=== PATIENT | male | born 1940 | race Caucasian/White ===

== ENCOUNTER → 2017-06-24 | Outpatient (CLI) | payer MEDICARE, BC ==
[2014-05-01 17:10] VITALS: BMI 31.3
[~2017-06-24] MED LIST: ACET-2043 PO; ALFU10TA9 PO; ASPI-757 PO; ATOR40TA24 PO; HYDR-318 PO; HYDR453.8 TP; ISOS30TA54 PO; LISI-374 PO; LISI20TA29 PO; MECL12.5 PO; MULT1CAP59 PO; NAPR220C12 PO; OMEP-137 PO; OMEP40CA48 PO; OXYB5TAB86 PO; SIMV-54 PO
--- NOTE | 2017-06-24 16:55 | RADIOLOGY IMAGING REPORT ---
FACILITY: [facility] PATIENT NAME: Juan Encarnacion : 1940 MR: [id number] V: [id number] EXAM DATE: ORDERING PHYSICIAN: [facility] TECHNOLOGIST: Location: [facility] [place] Patient: Juan Encarnacion : 1940 Visit/Account:[id number] Date of Sevice: 06/24/2017 CHEST PA AND LAT INDICATION: Pneumonia COMPARISON: None available FINDINGS: Heart size within normal limits. There is no focal infiltrate or lobar consolidation. There is no pneumothorax or pleural effusion. IMPRESSION: 1. No acute cardiopulmonary process. Report Dictated By: Jesus Sifuentes at 06/24/2017 4:48 PM Report E-Signed By: Jesus Sifuentes at 06/24/2017 4:49 PM WSN:[id number]
== END ==
LOC: RAD 15:47
DX: J18.9 Pneumonia, unspecified organism (principal)
CPT/HCPCS: 71046

== ENCOUNTER 2017-09-26 11:51 | Emergency (ER) | payer MEDICARE, BC ==
[2014-05-01 17:10] VITALS: Wt 93.4 kg
--- NOTE | 2017-09-26 12:00 | ER Report ---
History and Physical Time Seen By MD: 11:59 Hx. of Stated Complaint: PT REPORTS SOB FOR "A COUPLE OF MONTHS, WORSE THE LAST WEEK OR TWO", SWOLLEN LEGS AND PAIN DOWN BOTH ARMS AND LEGS HPI/ROS CHIEF COMPLAINT: Exertional chest pain and shortness of breath. HISTORY OF PRESENT ILLNESS: Patient is 76-year-old male with past medical history for hypertension, hyperlipidemia, history of CHF, history of upper extremity DVT. Patient presents to merge department today with 2-3 months of exertional shortness of breath along with episodes of chest pain. Currently the patient has no chest pain but has noticed over the last 1-2 weeks worsening exercise tolerance. He feels quite short of breath and gets discomfort in the chest with going up just one flight of stairs. His noticed significant swelling in bilateral lower extremities. He also gets pain in both arms with exertion. Patient has no prior history per report of NH however a echocardiogram that was performed in 2016 showed some apical wall motion abnormalities. The patient also reports cough is productive of frothy sputum but denies fevers or chills. Patient is a former smoker. REVIEW OF SYSTEMS: Constitutional: No fever, no chills. Eyes: No discharge. ENT: No sore throat. Cardiovascular: Exertional chest pain Respiratory: Personal shortness of breath Gastrointestinal: No abdominal pain, no vomiting. Genitourinary: No hematuria. Musculoskeletal: No back pain. Skin: No rashes. Neurological: No headache. Allergies: Coded Allergies: No Known Drug Allergies (Unverified , 09/26/17) Home Meds Reported Medications Hydrocortisone 2.5% Oint (HYDROCORTISONE 2.5% OINT) 453.6 Gm Oint...g., 453.6 GM TP PRN, TUBE 04/05/17 Naproxen Sodium (ALEVE) 220 Mg Capsule, 220 MG PO BID Y for PAIN, CAPSULE 04/05/17 Omeprazole (OMEPRAZOLE) 40 Mg Capsule.dr, 40 MG PO QDAY, CAP 04/05/17 Alfuzosin Hcl (ALFUZOSIN HCL) 10 Mg Tab.er.24h, 10 MG PO QDAY 12/04/16 Isosorbide Mononitrate (ISOSORBIDE MONONITRATE ER) 30 Mg Tab.er.24h, 30 MG PO QDAY 12/04/16 Multivitamin (MULTIVITAMINS) 1 Each Capsule, 1 EACH PO QDAY, CAPSULE 12/04/16 Atorvastatin Calcium (LIPITOR) 40 Mg Tablet, 1 TAB PO QDAY, TAB 12/04/16 Lisinopril (LISINOPRIL) 40 Mg Tablet, 40 MG PO QDAY, TAB 12/04/16 Aspirin (ASPIRIN) 325 Mg Tablet, 325 MG PO DAILY, TAB 05/03/14 Past Medical/Surgical History Past medical history significant for hypertension, hyperlipidemia, benign prostatic hypertrophy, peripheral vascular disease, history of upper extremity DVT, history of total hip replacement. Hx Smoking: Yes (SMOKED 3 PPD FOR 35 YEARS) Smoking Status: Former Smoker Exposure to Second Hand Smoke?: No Hx Substance Use Disorder: No Hx Alcohol Use: Yes Constitutional Vital Sign - Last 24 Hours 09/26/17 09/26/17 09/26/17 09/26/17 11:55 11:55 12:00 12:06 Temp 97.8 Pulse 104 86 Resp 18 13 B/P (MAP) 129/70 129/70 (89) 122/69 (86) Pulse Ox 91 90 O2 Delivery Room Air 09/26/17 09/26/17 09/26/17 09/26/17 12:21 12:26 12:30 12:41 Pulse 91 84 87 Resp 10 12 B/P (MAP) 117/71 (86) Pulse Ox 85 92 92 09/26/17 12:52 O2 Flow Rate 2.0 Physical Exam General/Constitutional: Patient is awake, alert, nontoxic and in no acute respiratory distress. Head: Normocephalic and atraumatic. Eyes: Conjunctival clear, Pupils are equal and reactive to light. Oropharyngeal: Mucous membranes are moist. Neck: Supple, no adenopathy. Cardiovascular: Heart is regular rate and rhythm without audible murmurs, rubs or gallops. Pulmonary: Lungs are clear to auscultation bilaterally. There are no wheezes, rales, or rhonchi. Chest rise is symmetrical Abdomen: Soft, nontender, no guarding or peritoneal signs. Extremities: No gross deformities, No peripheral cyanosis. Able to move all 4 extremities. Neuro: Alert and oriented X3, . Skin: No rashes, skin is warm dry and well perfused. Medical Decision Making Data Points Result Diagram: 09/26/17 1200 09/26/17 1200 Laboratory Hematology Test 09/26/17 12:00 Red Blood Count 4.63 M/uL (4.00-5.60) Mean Corpuscular Volume 91.7 fL (80.0-96.0) Mean Corpuscular Hemoglobin 30.8 pg (26.0-33.0) Mean Corpuscular Hemoglobin Concent 33.5 g/dL (32.0-36.0) Red Cell Distribution Width 14.3 % (11.5-14.5) Mean Platelet Volume 8.8 fL (7.2-11.1) Neutrophils (%) (Auto) 70.3 % (39.4-72.5) Lymphocytes (%) (Auto) 13.3 % (17.6-49.6) Monocytes (%) (Auto) 10.8 % (4.1-12.4) Eosinophils (%) (Auto) 4.5 % (0.4-6.7) Basophils (%) (Auto) 1.1 % (0.3-1.4) Nucleated RBC Relative Count (auto) 0.0 /100WBC Neutrophils # (Auto) 4.5 K/uL (2.0-7.4) Lymphocytes # (Auto) 0.8 K/uL (1.3-3.6) Monocytes # (Auto) 0.7 K/uL (0.3-1.0) Eosinophils # (Auto) 0.3 K/uL (0.0-0.5) Basophils # (Auto) 0.1 K/uL (0.0-0.1) Nucleated RBC Absolute Count (auto) 0.00 K/uL Prothrombin Time 14.2 seconds (12.0-14.4) Prothromb Time International Ratio 1.09 Activated Partial Thromboplast Time 30 seconds (23-35) D-Dimer Quantitative (PE/DVT) 0.78 ug/ml (0-0.50) Sodium Level 141 mmol/L (137-145) Potassium Level 3.9 mmol/L (3.5-5.0) Chloride Level 104 mmol/L (98-107) Carbon Dioxide Level 23 mmol/L (22-30) Blood Urea Nitrogen 12 mg/dl (9-21) Creatinine 1.00 mg/dl (0.66-1.25) Glomerular Filtration Rate Calc > 60.0 Random Glucose 105 mg/dl (75-110) Calcium Level 8.9 mg/dl (8.4-10.2) Total Bilirubin 2.1 mg/dl (0.2-1.3) Aspartate Amino Transf (AST/SGOT) 35 U/L (0-35) Alanine Aminotransferase (ALT/SGPT) 38 U/L (0-56) Alkaline Phosphatase 120 U/L (0-126) Troponin I 0.281 ng/ml B-Type Natriuretic Peptide 664 pg/ml (0-100) Total Protein 6.5 gm/dl (6.3-8.2) Albumin 3.6 g/dl (3.5-5.0) Chemistry Test 09/26/17 12:00 White Blood Count 6.3 k/uL (4.5-11.0) Red Blood Count 4.63 M/uL (4.00-5.60) Hemoglobin 14.2 g/dL (14.0-18.0) Hematocrit 42.4 % (42.0-52.0) Mean Corpuscular Volume 91.7 fL (80.0-96.0) Mean Corpuscular Hemoglobin 30.8 pg (26.0-33.0) Mean Corpuscular Hemoglobin Concent 33.5 g/dL (32.0-36.0) Red Cell Distribution Width 14.3 % (11.5-14.5) Platelet Count 167 K/uL (150-450) Mean Platelet Volume 8.8 fL (7.2-11.1) Neutrophils (%) (Auto) 70.3 % (39.4-72.5) Lymphocytes (%) (Auto) 13.3 % (17.6-49.6) Monocytes (%) (Auto) 10.8 % (4.1-12.4) Eosinophils (%) (Auto) 4.5 % (0.4-6.7) Basophils (%) (Auto) 1.1 % (0.3-1.4) Nucleated RBC Relative Count (auto) 0.0 /100WBC Neutrophils # (Auto) 4.5 K/uL (2.0-7.4) Lymphocytes # (Auto) 0.8 K/uL (1.3-3.6) Monocytes # (Auto) 0.7 K/uL (0.3-1.0) Eosinophils # (Auto) 0.3 K/uL (0.0-0.5) Basophils # (Auto) 0.1 K/uL (0.0-0.1) Nucleated RBC Absolute Count (auto) 0.00 K/uL Prothrombin Time 14.2 seconds (12.0-14.4) Prothromb Time International Ratio 1.09 Activated Partial Thromboplast Time 30 seconds (23-35) D-Dimer Quantitative (PE/DVT) 0.78 ug/ml (0-0.50) Glomerular Filtration Rate Calc > 60.0 Calcium Level 8.9 mg/dl (8.4-10.2) Total Bilirubin 2.1 mg/dl (0.2-1.3) Aspartate Amino Transf (AST/SGOT) 35 U/L (0-35) Alanine Aminotransferase (ALT/SGPT) 38 U/L (0-56) Alkaline Phosphatase 120 U/L (0-126) Troponin I 0.281 ng/ml B-Type Natriuretic Peptide 664 pg/ml (0-100) Total Protein 6.5 gm/dl (6.3-8.2) Albumin 3.6 g/dl (3.5-5.0) Coagulation Test 09/26/17 12:00 Prothrombin Time 14.2 seconds Prothromb Time International Ratio 1.09 Activated Partial Thromboplast Time 30 seconds D-Dimer Quantitative (PE/DVT) 0.78 ug/ml EKG/Imaging EKG Interpretation EKG shows normal sinus rhythm with ventricular rate of 86 bpm. Patient has a right bundle branch block with left anterior fascicular block. When compared with an EKG from 2017 or appears to be new T-wave inversions in the inferior leads and through the anterior lateral precordial leads. Patient did have a echocardiogram in 2017 results listed below: OVERALL IMPRESSION: 1. Ejection fraction measured at 55% with a grade 1/4 decrease in diastolic function. 2. Normal chamber sizes with the left atrial and right atrial volumes being the upper range of normal in size. 3. There is aortic stenosis. I was unable to really tell the configuration of the aortic valve. The aortic valve area measured at 1.3 cm2 with mean pressure gradient across the valve of 13 mmHg and a dimensionless index of 0.4 indicating mild to borderline moderate aortic stenosis. No aortic insufficiency was noted. 4. There is a trace of mitral and tricuspid insufficiency with no stenosis of the valves. The estimated right ventricular systolic pressures measured within normal range at 11 mmHg. No other abnormalities were noted. Monitor Interpretation: Normal Sinus Rhythm Imaging [facility] PATIENT NAME: Juan Encarnacion : 1940 MR: [id number] V: [id number] EXAM DATE: ORDERING PHYSICIAN: CALEB REBOLLEDO TECHNOLOGIST: Location: [facility] Patient: Juan Encarnacion : 1940 Visit/Account:[id number] Date of Sevice: 09/26/2017 CHEST PA AND LAT INDICATION: Chest pain COMPARISON: June 24, 2017 FINDINGS: The cardiac silhouette is normal in size. No pneumothorax. Clear lungs. No acute osseous abnormality. No pleural fluid. IMPRESSION: No acute finding. Report Dictated By: Ovidio Marrero MD at 09/26/2017 12:47 PM Report E-Signed By: Ovidio Marrero MD at 09/26/2017 12:48 PM WSN:[id number] [facility]AC[facility] PATIENT NAME: Juan Encarnacion : 1940 MR: [id number] V: [id number] EXAM DATE: ORDERING PHYSICIAN: CALEB REBOLLEDO TECHNOLOGIST: Location: [facility] Patient: Juan Encarnacion : 1940 Visit/Account:[id number] Date of Sevice: 09/26/2017 EXAMINATION: CT chest angiogram HISTORY: Short of breath, left lower 70 swelling TECHNIQUE: CT angiogram was obtained through the chest with intravenous contrast. Sagittal and coronal MPR and MIP coronal reformations were generated. 75 mL isovue 370 was injected. One of the following dose optimization techniques was utilized in the performance of this exam: automated exposure control; adjustment of the mA and/ or kV according to patient size; or use of iterative reconstruction technique. Specific details can be referenced in the facility's radiology CT exam operational policy. COMPARISON: December 04, 2016 FINDINGS: Lower neck: Normal. Heart / pericardium/aorta/great vessels: Unchanged aortic valve calcification. Unchanged coronary artery calcifications. Mediastinum: Normal. Lymph node assessment: Multiple paratracheal lymph nodes as before, a few of which have increased in size. These are favored to be reactive. Pleura: Trace new bilateral pleural effusions. Pulmonary arteries/pulmonary arterial vascular tree: No pulmonary embolus identified.. Lungs: Mild emphysema. Unchanged right upper lobe calcified granuloma, image 24. Upper abdomen: Normal. Chest wall: Normal. Musculoskeletal: No acute osseous abnormality. Findings in keeping with benign diffuse idiopathic skeletal hyperostosis noted in the thoracic spine. IMPRESSION: 1. No pulmonary embolus. 2. Trace new bilateral pleural effusions. 3. Mild emphysema. 4. Unchanged coronary artery calcifications. 5. Unchanged aortic valve calcification which can be associated with aortic stenosis. Report Dictated By: Ovidio Marrero MD at 09/26/2017 1:11 PM Report E-Signed By: Ovidio Marrero MD at 09/26/2017 1:22 PM WSN:[id number] ED Course/Re-evaluation Clinical Indication for ER IV: IV Access ED Course Plan at this time will be cardiac workup given the history of DVT we'll do a screening d-dimer we'll also get a brain atretic peptide. Patient will be given aspirin. The patient developed pain we'll consider nitroglycerin. I'll also perform a three-hour delta troponin. 09/26/2017 12:43:48 pm patient with elevated troponin at 0.281 with 0.12 being positive for acute myocardial injury. We will give 300 mg Plavix one noted per kilogram of Lovenox will also place half inch of Nitropaste on the patient. He is currently pain-free at this time. Patient's bulk delivery driver is Dr. Issa will call [facility] cardiology for transfer to higher level of care. 09/26/2017 1:17:01 pm I spoke with Dr. Pa Poon at [facility]. History physical exam all pertinent lab data and imaging studies were reviewed. Patient felt to have non-STEMI based on blood tests and EKG. We gave the patient 300 mg of Plavix, 1 m/kg of Lovenox, patient is pain-free but we did place 1/2 inch of Nitropaste on the anterior chest wall and as stated before he had already received 324 mg of aspirin. Patient was accepted for care and transfer at this time CT scan of the chest is pending for PE however this should not delay transport as patient is currently also being treated for PE with the Lovenox. Patient family were explained the significance of the findings in the emergency department today on the agreed for transport at this time. Decision to Disposition Date: Sep 26, 2017 Decision to Disposition Time: 13:18 Depart Departure Latest Vital Signs Vital Signs Date Time Temp Pulse Resp B/P (MAP) Pulse Ox O2 Delivery O2 Flow Rate FiO2 09/26/17 12:52 2.0 09/26/17 12:41 87 12 92 09/26/17 12:30 117/71 (86) 09/26/17 11:55 97.8 Room Air Impression: Primary Impression: NSTEMI (non-ST elevated myocardial infarction) Condition: Improved Disposition: [facility]FER TO [facility] (To Dr Poon) CALEB REBOLLEDO MD Sep 26, 2017 12:00
[2017-09-26] MEDS ORDERED: ASPIRIN 81 MG CHEW PO ONE (12:05)
[2017-09-26 12:13] LABS: PLATELET COUNT, AUTOMATED 167 K/uL (150-450)
--- NOTE | 2017-09-26 12:19 | EKG ---
FACILITY: [facility] PATIENT NAME: RICARDO MORRISON : [id number] MR: [id number] V: [id number] EXAM DATE: ORDERING PHYSICIAN: CALEB REBOLLEDO TECHNOLOGIST: MOE Reyes Reason : CHEST PAIN, SOB Blood Pressure : / mmHG Vent. Rate : 086 BPM Atrial Rate : 086 BPM P-R Int : 170 ms QRS Dur : 140 ms QT Int : 406 ms P-R-T Axes : -22 -46 -60 degrees QTc Int : 485 ms Normal sinus rhythm Right bundle branch block T wave inversion anteriorly and inferiorly, consider ischemia Left anterior fascicular block Bifascicular block Left ventricular hypertrophy with QRS widening and repolarization abnormality Inferior infarct , age undetermined Abnormal ECG Confirmed by WILBERTO AGUILAR ([id number]) on 09/26/2017 7:00:35 PM Referred By: KESHA Confirmed By:WILBERTO AGUILAR
[2017-09-26 12:21] LABS: INR 1.09
[2017-09-26] MEDS ORDERED: ENOXAPARIN 100 MG/ML SYR SC SCH (12:35)
[2017-09-26] MEDS ORDERED: IOPAMIDOL 76% 75 ML INFUS BTL 75 ML ONE (12:35)
[2017-09-26] MEDS ORDERED: CLOPIDOGREL BISULFATE 75MG TAB PO ONE (12:35)
[2017-09-26] MEDS ORDERED: NS 0.9% 150 ML BAG 150 ML ONE (12:35)
[2017-09-26] MEDS ORDERED: NITROGLYCERIN OINT 1 GM PKT TP ONE (12:35)
--- NOTE | 2017-09-26 12:52 | RADIOLOGY IMAGING REPORT ---
FACILITY: [facility] - [place], [place] PATIENT NAME: Juan Encarnacion : 1940 MR: [id number] V: [id number] EXAM DATE: ORDERING PHYSICIAN: CALEB REBOLLEDO TECHNOLOGIST: Location: [facility] - [place] Patient: Juan Encarnacion : 1940 Visit/Account:[id number] Date of Sevice: 09/26/2017 CHEST PA AND LAT INDICATION: Chest pain COMPARISON: June 24, 2017 FINDINGS: The cardiac silhouette is normal in size. No pneumothorax. Clear lungs. No acute osseous abnormality. No pleural fluid. IMPRESSION: No acute finding. Report Dictated By: Ovidio Marrero MD at 09/26/2017 12:47 PM Report E-Signed By: Ovidio Marrero MD at 09/26/2017 12:48 PM WSN:[id number]
--- NOTE | 2017-09-26 13:26 | RADIOLOGY IMAGING REPORT ---
FACILITY: [facility] PATIENT NAME: Juan Encarnacion : 1940 MR: [id number] V: [id number] EXAM DATE: ORDERING PHYSICIAN: CALEB REBOLLEDO TECHNOLOGIST: Location: [facility] - [place] Patient: Juan Encarnacion : 1940 Visit/Account:[id number] Date of Sevice: 09/26/2017 EXAMINATION: CT chest angiogram HISTORY: Short of breath, left lower 70 swelling TECHNIQUE: CT angiogram was obtained through the chest with intravenous contrast. Sagittal and cor onal MPR and MIP coronal reformations were generated. 75 mL isovue 370 was injected. One of the following dose optimization techniques was utilized in the performance of this exam: autom ated exposure control; adjustment of the mA and/or kV according to patient size; or use of iterative reconstruction technique. Specific details can be referenced in the facility's radiology CT exam ope rational policy. COMPARISON: December 04, 2016 FINDINGS: Lower neck: Normal. Heart / pericardium/aorta/great vessels: Unchanged aortic valve calcification. Unchanged coronary ar ann calcifications. Mediastinum: Normal. Lymph node assessment: Multiple paratracheal lymph nodes as before, a few of which have increased in size. These are favored to be reactive. Pleura: Trace new bilateral pleural effusions. Pulmonary arteries/pulmonary arterial vascular tree: No pulmonary embolus identified.. Lungs: Mild emphysema. Unchanged right upper lobe calcified granuloma, image 24. Upper abdomen: Normal. Chest wall: Normal. Musculoskeletal: No acute osseous abnormality. Findings in keeping with benign diffuse idiopathic sk eletal hyperostosis noted in the thoracic spine. IMPRESSION: 1. No pulmonary embolus. 2. Trace new bilateral pleural effusions. 3. Mild emphysema. 4. Unchanged coronary artery calcifications. 5. Unchanged aortic valve calcification which can be associated with aortic stenosis. Report Dictated By: Ovidio Marrero MD at 09/26/2017 1:11 PM Report E-Signed By: Ovidio Marrero MD at 09/26/2017 1:22 PM WSN:[id number]
[2017-09-26 13:30] VITALS: BP 134/73
== END 2017-09-26 14:00 | disposition short-term general hospital (02) ==
LOC: ER 12:06
DX: I21.4 Non-ST elevation (NSTEMI) myocardial infarction (principal)
CPT/HCPCS: 71046; 71275; 83880; 84484; 85025; 85379; 85610; 85730; 93005; 96372; 99284; A9270; J1650; Q9967; 82040; 82247; 82310; 82374; 82435; 82565; 82947; 84075; 84132; 84155; 84295; 84450; 84460; 84520

== ENCOUNTER → 2017-09-26 | Outpatient (CLI) | payer MEDICARE, BC ==
[2014-05-01 17:10] VITALS: BMI 31.3
== END ==
LOC: AMB 13:42
PROVIDERS: ATTEND Nurse Practitioner
DX: R79.89 Other specified abnormal findings of blood chemistry (principal)
CPT/HCPCS: A0425; A0426

== ENCOUNTER → 2017-10-03 | Outpatient (CLI) | payer MEDICARE, BC ==
[2014-05-01 17:10] VITALS: BMI 31.3
== END ==
LOC: LAB 15:31
PROVIDERS: ATTEND Family Medicine
DX: I10 Essential (primary) hypertension (principal)
CPT/HCPCS: 36415; 82310; 82374; 82435; 82565; 82947; 84132; 84295; 84520

== ENCOUNTER → 2018-08-08 | Outpatient (CLI) | payer MEDICARE, BC ==
[2014-05-01 17:10] VITALS: BMI 31.3
== END ==
LOC: LAB 11:25
PROVIDERS: ATTEND Internal Medicine Cardiovascular Disease
DX: I25.10 Atherosclerotic heart disease of native coronary artery without angina pectoris (principal); I25.84 Coronary atherosclerosis due to calcified coronary lesion
CPT/HCPCS: 36415; 82040; 82247; 82310; 82374; 82435; 82465; 82565; 82947; 83718; 84075; 84132; 84155; 84295; 84450; 84460; 84478; 84520

== ENCOUNTER → 2018-09-15 | Outpatient (CLI) | payer MEDICARE, BC ==
[2014-05-01 17:10] VITALS: BMI 31.3
== END ==
LOC: LAB 10:12
PROVIDERS: ATTEND Internal Medicine Cardiovascular Disease
DX: I50.22 Chronic systolic (congestive) heart failure (principal); I25.5 Ischemic cardiomyopathy
CPT/HCPCS: 81001

== ENCOUNTER → 2018-12-25 | Outpatient (CLI) | payer MEDICARE, BC ==
[2014-05-01 17:10] VITALS: BMI 31.3
== END ==
LOC: LAB 14:29
PROVIDERS: ATTEND Internal Medicine Cardiovascular Disease
DX: I50.23 Acute on chronic systolic (congestive) heart failure (principal); R60.0 Localized edema
CPT/HCPCS: 36415; 81001; 82310; 82374; 82435; 82565; 82947; 84132; 84295; 84520

== ENCOUNTER → 2019-01-10 | Outpatient (CLI) | payer MEDICARE, BC ==
[2014-05-01 17:10] VITALS: BMI 31.3
== END ==
LOC: LAB 14:08
PROVIDERS: ATTEND Internal Medicine Cardiovascular Disease
DX: I50.20 Unspecified systolic (congestive) heart failure (principal); I25.5 Ischemic cardiomyopathy; R60.0 Localized edema
CPT/HCPCS: 36415; 82310; 82374; 82435; 82565; 82947; 84132; 84295; 84520

== ENCOUNTER → 2019-01-22 | Outpatient (CLI) | payer MEDICARE, BC ==
[2014-05-01 17:10] VITALS: BMI 31.3
== END ==
LOC: LAB 12:47
PROVIDERS: ATTEND Internal Medicine Cardiovascular Disease
DX: I50.20 Unspecified systolic (congestive) heart failure (principal); I25.5 Ischemic cardiomyopathy
CPT/HCPCS: 36415; 82310; 82374; 82435; 82565; 82947; 84132; 84295; 84520